=== PATIENT | male | born 2000 | race Caucasian/White ===

== ENCOUNTER 2020-12-21 17:22 | Emergency (ER) | payer OTHER, BC | END 2020-12-21 20:50 | disposition home or self-care (01) | LOC: ER1 17:22 | DX: S16.1XXA Strain of muscle, fascia and tendon at neck level, initial encounter (principal); S00.03XA Contusion of scalp, initial encounter; S50.812A Abrasion of left forearm, initial encounter; S50.811A Abrasion of right forearm, initial encounter; S80.812A Abrasion, left lower leg, initial encounter; S80.811A Abrasion, right lower leg, initial encounter; F17.290 Nicotine dependence, other tobacco product, uncomplicated; V86.69XA Passenger of other special all-terrain or other off-road motor vehicle injured in nontraffic accident, initial encounter; Y92.410 Unspecified street and highway as the place of occurrence of the external cause | CPT/HCPCS: 70450; 72125; 99283 ==